=== PATIENT | female | born 1965 | race Native Hawaiian/Other Pacific Islander ===

== ENCOUNTER 2020-07-31 13:02 | Outpatient (CLI) | payer SELFPAY | END 2020-07-31 23:59 | disposition short-term general hospital (02) | LOC: EMS 13:02 | PROVIDERS: ATTEND Surgery | DX: H53.8 Other visual disturbances (principal); R29.818 Other symptoms and signs involving the nervous system | CPT/HCPCS: A0425; A0427 ==

== ENCOUNTER 2020-09-28 05:43 | Outpatient (CLI) | payer MEDICAID | END 2020-09-28 05:44 | disposition short-term general hospital (02) | LOC: EMS 05:43 | DX: K92.1 Melena (principal) | CPT/HCPCS: A0425; A0427; A0999 ==

== ENCOUNTER 2021-07-10 17:14 | Outpatient (CLI) | payer MEDICAID | END 2021-07-10 17:15 | disposition critical access hospital (66) | LOC: EMS 17:14 | DX: K94.23 Gastrostomy malfunction (principal) | CPT/HCPCS: A0425; A0429; A0999 ==

== ENCOUNTER 2021-07-10 17:16 | Emergency (ER) | payer MEDICAID ==
--- NOTE | 2021-07-10 17:46 | ED Physician Documentation ---
History of Present Illness - Stated complaint Stated Complaint: FEEDING TUBE ISSUES - Chief complaint Chief Complaint: General - Additonal information Additional information: 56-year-old female is brought to the emergency department for evaluation of PEG tube dysfunction. She is an active cancer patient undergoing current chemotherapy and radiation. She had this right-sided PEG tube placed at [facility] 06/26/21. Her previous one stopped working normally. She receives bolus feedings 3 times a day. She reports that initially when the tube was placed she had bleeding. However today has had leakage of tube feeding arou nd the site when the feeds were going in. Reports that the site remains tender, but not much more so than when it was placed initially Also reports that she is taking keflex for a UTI. last chemotherapy 07/09/21. She did receive nupogen post treatment. Denies any fevers. no vomiting Has a history of breast and lung cancer with mets to the brain. Undergoing current chemotherapy through [facility]. Oncologist is Dr. Campuzano. Review of Systems Constitutional: denies: Fever, Chills Eyes: reports: Reviewed and negative Ears: reports: Reviewed and negative Nose: reports: Rhinorrhea / runny nose Throat: reports: Reviewed and negative Cardiac: reports: Reviewed and negative Respiratory: reports: Reviewed and negative GI: reports: Abdominal Pain, Other (PEG tube dysfunction) : reports: Reviewed and negative Skin: reports: Reviewed and negative Musculoskeletal: reports: Reviewed and negative Neurologic: reports: Reviewed and negative Psychiatric: reports: Reviewed and negative PD PAST MEDICAL HISTORY - Present Medications Home Medications: Ambulatory Orders Medication Instructions Recorded Confirmed Amox/Clav 875/125 [Augmentin] 1 each PO Q12H #14 tablet 07/10/21 - Allergies Allergies/Adverse Reactions: Allergies Allergy/AdvReac Type Severity Reaction Status Date / Time morphine Allergy Anaphylaxis Verified 07/10/21 17:20 PD ED PE EXPANDED - General General: Alert. No: Well developed/nourished (Thin cachectic chronic ill ap pearance. Alopecia) - Cardiac Cardiac: Regular Rate, Radial strong equal, Pedal strong equal, Cap refill < 2 sec - Respiratory Respiratory: Clear to ausultation cata. No: Distress, Labored - Abdomen Abdomen: Normal Bowel sounds, Tender to palpation, Surgical scars, Other (Left-sided PEG stoma clean dry and intact. Right-sided PEG inserted to 4 cm. Moderate amount of tube feed seen exiting at the stoma site) - Neuro Neuro: Alert and Oriented X 3, CNII-XII intact - GCS Eye Opening: Spontaneous Motor: Obeys Commands Verbal: Oriented Total: 15 Results - Vitals Vitals: Vital Signs - 24 hr 07/10/21 07/10/21 17:20 19:39 Temperature 37.3 C 37.5 C Heart Rate 60 90 Respiratory 16 16 Rate Blood Pressure 129/73 120/68 O2 Saturation 99 100 Oxygen O2 Source Room air - Labs Labs: Laboratory Tests 07/10/21 07/10/21 07/10/21 17:49 17:49 18:37 WBC 28.1 H RBC 2.43 L Hgb 7.8 L Hct 24.2 L MCV 99.6 H MCH 32.1 H MCHC 32.2 RDW 19.6 H Plt Count 521 H MPV 9.7 Neut # (Auto) 25.1 H Lymph # (Auto) 0.8 L [place] # (Auto) 1.3 H Eos # (Auto) 0.2 Baso # (Auto) 0.1 Absolute Nucleated RBC 0.05 Nucleated RBC % 0.2 Manual Slide Review Indicated Platelet Estimate INCREASED (>450,000) Platelet Morphology 1+ GIANT PLATELETS RBC Morph Micro Appear NORMAL APPEARANCE Sodium 135 Potassium 4.0 Chloride 98 L Carbon Dioxide 25 Anion Gap 12.0 BUN 46 H Creatinine 1.4 H Estimated GFR (MDRD) 39 L Glucose 139 H Lactic Acid 2.0 Calcium 8.6 Total Bilirubin 0.4 AST 35 ALT 25 Alkaline Phosphatase 126 H Total Protein 7.1 Albumin 3.3 Globulin 3.8 Albumin/Globulin Ratio 0.9 L Lipase 116 H Urine Color Urine Clarity Urine pH Ur Specific [place] Urine Protein Urine Glucose (UA) Urine Ketones Urine Occult Blood Urine Nitrite Urine Bilirubin Urine Urobilinogen Ur Leukocyte Esterase Urine RBC Urine WBC Ur Squamous Epith Cells Urine Bacteria Ur Microscopic Review Urine Culture Comments 07/10/21 18:58 WBC RBC Hgb Hct MCV MCH MCHC RDW Plt Count MPV Neut # (Auto) Lymph # (Auto) [place] # (Auto) Eos # (Auto) Baso # (Auto) Absolute Nucleated RBC Nucleated RBC % Manual Slide Review Platelet Estimate Platelet Morphology RBC Morph Micro Appear Sodium Potassium Chloride Carbon Dioxide Anion Gap BUN Creatinine Estimated GFR (MDRD) Glucose Lactic Acid Calcium Total Bilirubin AST ALT Alkaline Phosphatase Total Protein Albumin Globulin Albumin/Globulin Ratio Lipase Urine Color YELLOW Urine Clarity CLEAR Urine pH 7.0 Ur Specific [place] 1.010 Urine Protein NEGATIVE Urine Glucose (UA) NEGATIVE Urine Ketones NEGATIVE Urine Occult Blood NEGATIVE Urine Nitrite NEGATIVE Urine Bilirubin NEGATIVE Urine Urobilinogen 0.2 (NORMAL) Ur Leukocyte Esterase SMALL H Urine RBC None Seen Urine WBC 6-10 H Ur Squamous Epith Cells RARE Squamous Urine Bacteria None Seen Ur Microscopic Review INDICATED Urine Culture Comments INDICATED - Rads (name of study) KUB Radiology: Final report received (Opacification of the stomach, compatible with adequate replacement of the patient's percutaneous gastrostomy tube) CXR Radiology: Final report received (no acute cardiopulmonary process) CT abd Radiology: Final report received (No acute abnormality) PD MEDICAL DECISION MAKING - ED course Complexity details: reviewed results, re-evaluated patient, d/w patient, d/w family, d/w pharmacy consultant (Matteo (GI at [facility]) muna Oncologist) ED course: 56-year-old female who is undergoing active chemotherapy and radiation for lung and breast cancer with mets to the brain presents to the emergency department for leaking around her PEG tube site which was placed on 26 June at [facility]. X-ray with Gastrografin shows that the PEG tube is in appropriate position. She had very little Gastrografin leaking when it was pushed through the PEG tube. I did discuss our concerns with the G-tube leaking with on-call control operator flow coat Dr. Felipe at [facility]. She presented with the G-tube at 4 cm. He did recommend that we gently pull it back to 3 cm which we have done at the bedside. This was well-tolerated by the patient. He suspects additional tension at the PEG tube site will allow the stoma to heal. Screening labs however showed a marked leukocytosis of 28,000. Her electrolytes indicate mild dehydration with an elevated BUN and creatinine. She was given a liter of crystalloid here in the emergency department. A subsequent CT of her abdomen was completed and it did not show any acute worrisome findings. Specifically the PEG tube is in place With no findings of intestinal obstruction. Chest x-ray was free of focal opacities. Blood cultures are pending. Her urine is not consistent with infection. I did discuss the leukocytosis with her oncologist Dr. Campuzano. He reports that when she received chemotherapy 2 days ago she had a white blood cell count of 17.8. She also had a modest anemia with a hemoglobin of 8.2. She had reported to him at that time that she was stumbling and having increased difficulty walking. Due to this concern he increased her Decadron dosing. He suspects that is the cause of the white blood cell count elevation but given the concerns for her PEG tube leaking he would recommend starting her on Augmentin. I have discussed the labs, imaging findings as well as my discussion with GI and Dr. Campuzano with the patient and her mom and they are comfortable at this time with discharge home. Emergent return precautions were discussed. Departure - Departure Disposition: Home, Self Care Clinical Impression: Leaking PEG tube, Lung cancer metastatic to brain Leukocytosis Qualifiers: Leukocytosis type: unspecified Qualified Code(s): D72.829 - Elevated white blood cell count, unspecified Condition: Stable Record reviewed to determine appropriate education?: Yes Prescriptions: Amox/Clav 875/125 [Augmentin] 1 each PO Q12H #14 tablet Comments: Karen was seen in the emergency department for concerns of leaking around her PEG tube. The PEG tube is at 3 cm at the skin. In order to help the tract heal and reduce leaking we recommend gentle traction on the tube when feeding. She may also benefit from having the feeds running over a slower amount of time. If the feeding tube continues to leak she will need to be seen by GI. The x-ray with Gastrografin as well as the CT of her abdomen showed that the PEG tube is in appropriate position Today her white blood cell count was very elevated at 28,000. I discussed this with her oncologist Dr. Campuzano. When she received chemotherapy on her white count was 17.8. Because she had reported that she is stumbling more he did increase her steroids. This can cause an increase in her white blood cell count. I am her urine shows no further signs of infection. Her chest x-ray does not show pneumonia. We do have blood cultures pending and will call you if they are positive. Dr. Campuzano does recommend that she take a week of Augmentin. This is an antibiotic that can help cover bacteria associated with the intestines. If at any point you find that her symptoms are worsening, she has fevers, uncontrolled vomiting diarrhea, black or bloody stools she is to return immediately to the ER. Your prescriptions have been sent electronically to the [facility]
[2021-07-10] MEDS ORDERED: DIATRIZOATE MEGLU/DIATRIZO SOD 30 ML BOTTLE PO ONE (17:51)
[2021-07-10 17:58] LABS: BASOPHILS # (AUTO) 0.1 10^3/uL (0.0-0.1); BASOPHILS % (AUTO) 0.3 %; EOSINOPHILS # (AUTO) 0.2 10^3/uL (0.0-0.7); EOSINOPHILS % (AUTO) 0.7 %; HCT - HEMATOCRIT 24.2 % (37.0-47.0); HGB - HEMOGLOBIN 7.8 g/dL (12.0-16.0); LYMPHOCYTES # (AUTO) 0.8 10^3/uL (1.5-3.5); LYMPHOCYTES % (AUTO) 2.9 %; MEAN CORPUSCULAR HEMOGLOBIN 32.1 pg (27.0-31.0); MEAN CORPUSCULAR HGB CONC 32.2 g/dL (32.0-36.0); MEAN CORPUSCULAR VOLUME 99.6 fL (81.0-99.0); MEAN PLATELET VOLUME 9.7 fL (7.9-10.8); MONOCYTES # (AUTO) 1.3 10^3/uL (0.0-1.0); MONOCYTES % (AUTO) 4.7 %; NEUTROPHILS # (AUTO) 25.1 10^3/uL (1.5-6.6); NEUTROPHILS % (AUTO) 89.3 %; NRBC ABSOLUTE COUNT (AUTO) 0.05 x10^3/uL; NUCLEATED RED BLOOD CELLS AUTO 0.2 /100WBC; PLT - PLATELET COUNT 521 10^3/uL (130-450); RED BLOOD COUNT 2.43 10^6/uL (4.20-5.40); RED CELL DISTRIBUTION WIDTH 19.6 % (12.0-15.0); WHITE BLOOD COUNT 28.1 x10^3/uL (4.8-10.8)
[2021-07-10 18:01] LABS: SLIDE REVIEW? Indicated
[2021-07-10 18:20] LABS: ALBUMIN 3.3 g/dL (3.2-5.5); ALBUMIN/GLOBULIN RATIO 0.9 (1.0-2.2); BILIRUBIN,TOTAL 0.4 mg/dL (0.2-1.0); CALCIUM 8.6 mg/dL (8.5-10.3); CREATININE 1.4 mg/dL (0.4-1.0); TOTAL PROTEIN 7.1 g/dL (6.7-8.2)
[2021-07-10] MEDS ORDERED: SODIUM CHLORIDE 0.9% 1,000 ML IV STA (18:24)
[2021-07-10 18:52] LABS: PLATELET ESTIMATE, MANUAL INCREASED (>450,000) (NORMAL); PLATELET MORPHOLOGY 1+ GIANT PLATELETS (NORMAL); RBC MORPHOLOGY (MULTIPLE) NORMAL APPEARANCE (NORMAL)
[2021-07-10] MEDS ORDERED: IOPAMIDOL-300 100 ML VIAL ONE (18:52)
--- NOTE | 2021-07-10 18:52 | XRAY Report ---
PROCEDURE: Abdomen 2 View X-Ray INDICATIONS: ? peg tube placement TECHNIQUE: 2 views of the abdomen were acquired. COMPARISON: None. FINDINGS: Surgical changes and devices: A percutaneous gastrostomy tube is seen. A central venous catheter is partially imaged. Bowel: Enteric contrast opacifies the stomach. The bowel gas pattern is normal. Soft tissues: No masses; visualized solid organ contours appear normal in size. No suspicious abdom inal calcifications. Bones: No suspicious bony abnormalities. IMPRESSION: Opacification of the stomach, compatible with adequate replacement of the patient's perc utaneous gastrostomy tube. Reviewed by: Kostas Marie MD on 07/10/2021 6:51 PM PST Approved by: Kostas Marie MD on 07/10/2021 6:51 PM PST Station ID: [id number]
[2021-07-10 19:09] LABS: BILIRUBIN,URINE NEGATIVE (NEGATIVE); GLUCOSE, URINE (UA) NEGATIVE (NEGATIVE); KETONES,URINE (UA) NEGATIVE (NEGATIVE); LEUKOCYTE ESTERASE, URINE SMALL (NEGATIVE); NITRITE,URINE NEGATIVE (NEGATIVE); OCCULT BLOOD,URINE NEGATIVE (NEGATIVE); PROTEIN,URINE NEGATIVE (NEGATIVE); UROBILINOGEN,URINE 0.2 (NORMAL) E.U./dL (NORMAL)
[2021-07-10 19:24] LABS: BACTERIA,URINE None Seen /HPF (None Seen); CLARITY,URINE CLEAR (CLEAR); RBC,URINE None Seen /HPF (0-5); SQUAMOUS EPITHELIAL CELL,UR RARE Squamous (<= Few)
[2021-07-10] MEDS ORDERED: IOPAMIDOL-300 100 ML VIAL IVP ONE (19:36)
--- NOTE | 2021-07-10 19:51 | CT Report ---
PROCEDURE: Abdomen/Pelvis W INDICATIONS: leukocytosis; peg placement CONTRAST: IV CONTRAST: Isovue 300 ml: 80 PO CONTRAST: *NO PO CONTRAST TECHNIQUE: After the administration of oral and intravenous contrast, 5 mm thick sections acquired from the diap hragms to the symphysis. 5 mm thick coronal and sagittal reformats were acquired. For radiation dos e reduction, the following was used: automated exposure control, adjustment of mA and/or kV accordin g to patient size. COMPARISON: None. FINDINGS: Inferior chest: No focal consolidation, pleural effusion, or pneumothorax. No cardiomegaly or perica rdial effusion. Gallbladder: Cholecystectomy. Biliary tree: Minimal intrahepatic biliary ductal dilatation. Liver: The liver demonstrates normal enhancement, size, and contour. Spleen: Normal enhancement, size and morphology is seen. Pancreas: No contour deforming mass or inflammatory change. Adrenals: Normal size without masses. Kidneys/ureters: Normal size and morphology. No solid masses or hydronephrosis. Vasculature: No evidence of aneurysm or other significant vascular pathology. Lymphatic system: No pathologic enlargement by size criteria. GI/mesentery: A percutaneous gastrostomy tube is seen within the stomach. No evidence of intestinal o bstruction. Colonic diverticulosis. Normal appearance of the appendix. Peritoneum/Retroperitoneum: No free intraperitoneal gas or large collection. Urinary bladder: The urinary bladder is distended with a smooth thin wall. Pelvic organs: No significant abnormality. Bones/soft tissues: Mild compression deformity of the L1 superior endplate, age indeterminate. IMPRESSION: 1.No significant abnormality. Reviewed by: Kostas Marie MD on 07/10/2021 7:50 PM PST Approved by: Kostas Marie MD on 07/10/2021 7:50 PM PST Station ID: [id number]
--- NOTE | 2021-07-10 19:52 | XRAY Report ---
PROCEDURE: Chest 1 View X-Ray INDICATIONS: chest pain TECHNIQUE: One view of the chest was acquired. COMPARISON: None. FINDINGS: SUPPORT DEVICES: Left CT injectable key catheter with tip projecting over the atrial region. LUNGS/PLEURA: No focal consolidation, pleural effusion or space-occupying pneumothorax. MEDIASTINUM: The cardiomediastinal silhouette is within normal limits. BONES/SOFT TISSUES: No acute abnormality. IMPRESSION: 1.No acute cardiopulmonary abnormality. Reviewed by: Kostas Marie MD on 07/10/2021 7:51 PM PST Approved by: Kostas Marie MD on 07/10/2021 7:51 PM PST Station ID: [id number]
[2021-07-10 20:55] VITALS: BP 118/65
== END 2021-07-10 20:55 | disposition home or self-care (01) ==
LOC: EDUNIT# → ED 17:16
DX: K94.23 Gastrostomy malfunction (principal); E86.0 Dehydration; D72.829 Elevated white blood cell count, unspecified; D64.9 Anemia, unspecified; C50.919 Malignant neoplasm of unspecified site of unspecified female breast; C78.00 Secondary malignant neoplasm of unspecified lung; C79.31 Secondary malignant neoplasm of brain
CPT/HCPCS: 36415; 71045; 74019; 74177; 80053; 81001; 83605; 83690; 85025; 87040; 87086; 96360; 96361; 99283; 99284; Q9967; 81003